=== PATIENT | male | born 1980 | race Two or more races ===

== ENCOUNTER 2017-04-05 11:51 | Day surgery (SDC) | payer BC ==
[2017-04-05] MEDS ORDERED: PROPOFOL 40 ML (12:59)
== END 2017-04-05 15:02 | disposition home or self-care (01) ==
LOC: GIL 11:51
DX: K21.9 Gastro-esophageal reflux disease without esophagitis (principal); K29.70 Gastritis, unspecified, without bleeding; I10 Essential (primary) hypertension
CPT/HCPCS: 43239; 87081